=== PATIENT | male | born 1935 ===

== ENCOUNTER 2018-05-17 15:54 | Emergency (ER) | payer MEDICARE, MEDICAID ==
--- NOTE | 2018-05-17 16:33 | EDM.PDOC ---
ED HPI GENERAL MEDICAL PROBLEM - General Chief Complaint: Chest Pain Stated Complaint: CHEST PAIN Time Seen by Provider: 05/17/18 16:10 Source of Information: Reports: Patient, EMS History Limitations: Reports: Physical Impairment (Dementia and chronic confusion is present) - History of Present Illness INITIAL COMMENTS - FREE TEXT/NARRATIVE: 82-year-old male brought in by ambulance from [facility] because of chest discomfort. The patient told nursing that he has no chest pain but has had a cough and feels "crummy" and he does have a fever. He told me however he was having mild left chest discomfort that he has had for "2 weeks". Denies nausea or vomiting, denies abdominal pain. We have no previous records of this patient, he is a full code. EMS did an EKG in route which showed a left bundle-branch block, we have no previous EKGs to compare. Onset: Unknown/Unsure Severity: Moderate Associated Symptoms: Reports: Confusion, Chest Pain, Cough, Fever/Chills. Denies: Nausea/Vomiting - Related Data Allergies Allergy/AdvReac Type Severity Reaction Status Date / Time morphine Allergy Hives Verified 05/17/18 16:04 Home Meds: Home Meds Amino Acids/Protein Hydrolys [Pre Protein 20] 30 ml PO DAILY 05/17/18 [History] Calcium Carb & Citrate/Vit D3 [Calcium + D3 ER Tablet] 1 tab PO DAILY 05/17/18 [ History] Cholecalciferol (Vitamin D3) [Vitamin D3] 1,000 unit PO DAILY 05/17/18 [History] Docusate Sodium 1 tab PO DAILY 05/17/18 [History] Furosemide [Lasix] 60 mg PO DAILY 05/17/18 [History] Levothyroxine 25 mcg PO ACBREAKFAST 05/17/18 [History] Losartan Potassium 12.5 mg PO DAILY 05/17/18 [History] Melatonin 5 mg PO DAILY 05/17/18 [History] Metoprolol Succinate 75 mg PO DAILY 05/17/18 [History] Nitroglycerin 0.4 mg SL ASDIRECTED PRN 05/17/18 [History] Potassium Chloride 20 meq PO DAILY 05/17/18 [History] Rivaroxaban [Xarelto] 15 mg PO DAILY 05/17/18 [History] atorvaSTATin [Lipitor] 10 mg PO DAILY 05/17/18 [History] Past Medical History HEENT History: Reports: Hard of Hearing Cardiovascular History: Reports: Afib, High Cholesterol, Hypertension, Other ( See Below) Other Cardiovascular History: peripheral vascular disease,edema Gastrointestinal History: Reports: Chronic Constipation Neurological History: Reports: Alzheimers Disease, Other (See Below) Other Neuro History: insomnia Endocrine/Metabolic History: Reports: Hypothyroidism, Vitamin D Deficiency, Other (See Below) 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 Denies: Palpitations GI/Abdominal: Denies: Abdominal Pain, Nausea, Vomiting : Reports: No Symptoms Skin: Reports: Pallor Neurological: Reports: Confusion Psychiatric: Reports: No Symptoms ED EXAM, GENERAL - Physical Exam Exam: See Below Exam Limited By: Altered Mental Status (Chronic dementia, confusion) General Appearance: Alert, No Apparent Distress Eye Exam: Bilateral Eye: EOMI Head: Atraumatic Neck: Normal Inspection Respiratory/Chest: No Respiratory Distress, Lungs Clear Cardiovascular: Regular Rate, Rhythm GI/Abdominal: Soft, Non-Tender Extremities: Other (Lower extremities are wrapped with compression dressings bilaterally) Neurological: Alert. No: Oriented (Patient is disoriented to place and time) Skin Exam: Warm, Dry EKG INTERPRETATION Rhythm: NSR QRS: LBBB (EKG was used from EMS, left bundle branch was present so no additional EKG was done here.) Course - Vital Signs Last Recorded V/S: Last Vital Signs Temp 100.7 F H 05/17/18 16:00 Pulse 103 H 05/17/18 16:22 Resp 12 05/17/18 17:22 BP 136/77 05/17/18 17:22 Pulse Ox 98 05/17/18 17:22 - Orders/Labs/Meds Orders: Active Orders 24 hr Category Date Time Status Chest 1V Frontal [CR] Stat Exams 05/17/18 16:34 Taken UA W/MICROSCOPIC [URIN] Urgent Lab 05/17/18 16:19 Ordered Labs: Laboratory Tests 05/17/18 05/17/18 05/17/18 Range/Units 16:19 16:35 16:35 WBC 16.2 H (4.5-11.0) K/uL RBC 5.38 (4.30-5.90) M/uL Hgb 16.5 H (12.0-15.0) g/dL Hct 51.1 (40.0-54.0) % MCV 95 (80-98) fL MCH 31 (27-31) pg MCHC 32 (32-36) % Plt Count 196 (150-400) K/uL Neut % (Auto) 83 H (36-66) % Lymph % (Auto) 9 L (24-44) % [place] % (Auto) 8 H (2-6) % Eos % (Auto) 0 L (2-4) % Baso % (Auto) 0 (0-1) % Sodium 139 L (140-148) mmol/L Potassium 4.3 (3.6-5.2) mmol/L Chloride 101 (100-108) mmol/L Carbon Dioxide 32 (21-32) mmol/L Anion Gap 10.3 (5.0-14.0) mmol/L BUN 20 H (7-18) mg/dL Creatinine 1.2 (0.8-1.3) mg/dL Est Cr Clr Drug Dosing 45.13 mL/min Estimated GFR (MDRD) 58 L (>60) Glucose 140 H (74-106) mg/dL Lactic Acid (0.4-2.0) mmol/L Calcium 9.4 (8.5-10.1) mg/dL Total Bilirubin 1.4 H (0.2-1.0) mg/dL AST 20 (15-37) U/L ALT 25 (12-78) U/L Alkaline Phosphatase 99 (46-116) U/L Troponin I 0.020 (0.000-0.056) ng/mL Total Protein 7.7 (6.4-8.2) g/dL Albumin 3.3 L (3.4-5.0) g/dL Globulin 4.4 H (2.3-3.5) g/dL Albumin/Globulin Ratio 0.8 L (1.2-2.2) Urine Color Yellow Urine Appearance Clear Urine pH 6.5 (4.5-8.0) Ur Specific [place] 1.010 (1.008-1.030) Urine Protein Negative (NEGATIVE) mg/dL Urine Glucose (UA) Normal (NEGATIVE) mg/dL Urine Ketones Negative (NEGATIVE) mg/dL Urine Occult Blood Negative (NEGATIVE) Urine Nitrite Negative (NEGAITVE) Urine Bilirubin Negative (NEGATIVE) Urine Urobilinogen Normal (NORMAL) mg/dL Ur Leukocyte Esterase Negative (NEGATIVE) Urine RBC Not seen (0-5) Urine WBC Not seen (0-5) Ur Epithelial Cells Rare Amorphous Sediment Rare Urine Bacteria Not seen Urine Mucus Not seen 05/17/18 Range/Units 16:35 WBC (4.5-11.0) K/uL RBC (4.30-5.90) M/uL Hgb (12.0-15.0) g/dL Hct (40.0-54.0) % MCV (80-98) fL MCH (27-31) pg MCHC (32-36) % Plt Count (150-400) K/uL Neut % (Auto) (36-66) % Lymph % (Auto) (24-44) % [place] % (Auto) (2-6) % Eos % (Auto) (2-4) % Baso % (Auto) (0-1) % Sodium (140-148) mmol/L Potassium (3.6-5.2) mmol/L Chloride (100-108) mmol/L Carbon Dioxide (21-32) mmol/L Anion Gap (5.0-14.0) mmol/L BUN (7-18) mg/dL Creatinine (0.8-1.3) mg/dL Est Cr Clr Drug Dosing mL/min Estimated GFR (MDRD) (>60) Glucose (74-106) mg/dL Lactic Acid 1.8 (0.4-2.0) mmol/L Calcium (8.5-10.1) mg/dL Total Bilirubin (0.2-1.0) mg/dL AST (15-37) U/L ALT (12-78) U/L Alkaline Phosphatase (46-116) U/L Troponin I (0.000-0.056) ng/mL Total Protein (6.4-8.2) g/dL Albumin (3.4-5.0) g/dL Globulin (2.3-3.5) g/dL Albumin/Globulin Ratio (1.2-2.2) Urine Color Urine Appearance Urine pH (4.5-8.0) Ur Specific [place] (1.008-1.030) Urine Protein (NEGATIVE) mg/dL Urine Glucose (UA) (NEGATIVE) mg/dL Urine Ketones (NEGATIVE) mg/dL Urine Occult Blood (NEGATIVE) Urine Nitrite (NEGAITVE) Urine Bilirubin (NEGATIVE) Urine Urobilinogen (NORMAL) mg/dL Ur Leukocyte Esterase (NEGATIVE) Urine RBC (0-5) Urine WBC (0-5) Ur Epithelial Cells Amorphous Sediment Urine Bacteria Urine Mucus Meds: Medications Discontinued Medications Generic Name Dose Route Start Last Admin Trade Name Freq PRN Reason Stop Dose Admin Ceftriaxone Sodium 1 gm/ 50 mls @ 100 mls/hr 05/17/18 17:16 05/17/18 17:39 Sodium Chloride IV 05/17/18 17:45 100 mls/hr ONETIME ONE Administration - Re-Assessments/Exams Free Text/Narrative Re-Assessment/Exam: 05/17/18 16:33 Urine was obtained, CBC, CMP, lactic acid and portable chest x-ray along with troponin were obtained. 05/17/18 17:23 White count was 16,200, chest x-ray showed no definite infiltrate. Urine was normal.Electrolytes were reassuring, troponin was normal. With the patient's symptoms of cough and fever with intermittent chest pain a diagnosis of infection or bronchitis is more likely than cardiac source of pain. He was given 1 g of Rocephin IV and will be placed on Ceftin 250 mg twice daily. Departure - Departure Time of Disposition: 18:35 Disposition: DC/Tfer to [facility] [place] [facility] Condition: Fair Clinical Impression: Bronchitis, Atypical chest pain - Discharge Information Instructions: Acute Bronchitis, Adult Referrals: PCP,None [Primary Care Provider] - Forms: ED Department Discharge Care Plan Goals: Continue your current medications and on May 18 start the Ceftin antibiotic twice daily for the next 7 days as prescribed. Activity and diet as tolerated, and return anytime if worsening despite treatment. - My Orders Last 24 Hours: My Active Orders 05/17/18 16:19 UA W/MICROSCOPIC [URIN] Urgent 05/17/18 16:34 Chest 1V Frontal [CR] Stat - Assessment/Plan Last 24 Hours: My Active Orders 05/17/18 16:19 UA W/MICROSCOPIC [URIN] Urgent 05/17/18 16:34 Chest 1V Frontal [CR] Stat
[2018-05-17] MEDS ORDERED: cefTRIAXone 1 GM in Sodium Chloride 0.9% 50 ML IV ONE (17:16)
--- NOTE | 2018-05-18 14:49 | CR ---
Portable chest Shallow lung volumes are present. There is mild basilar atelectasis. There is cardiac enlargement. Th e vascular structures are within normal limits. Intact sternal wires are seen. Impression: 1. No acute findings.
== END 2018-05-17 18:36 ==
LOC: JP.ED 15:54
DX: J40 Bronchitis, not specified as acute or chronic (principal); R07.89 Other chest pain; I10 Essential (primary) hypertension; E03.9 Hypothyroidism, unspecified; Z79.899 Other long term (current) drug therapy; Z88.5 Allergy status to narcotic agent
CPT/HCPCS: 36415; 71045; 80053; 81001; 83605; 84484; 85025; 96365; 99285; J0696; J7050